=== PATIENT | female | born 1970 | race Caucasian/White ===

== ENCOUNTER 2019-03-04 08:04 | Outpatient (CLI) | payer OTHER ==
--- NOTE | 2019-03-04 09:01 | ULT ---
THYROID ULTRASOUND INDICATION: Left-sided thyroid nodules TECHNIQUE: Grayscale and color Doppler images were obtained of the thyroid gland. COMPARISON: None FINDINGS: Right thyroid lobe: The right thyroid lobe measures 1.4 x 4.0 x 1.2 cm. No focal nodule is seen withi n the right thyroid gland. Thyroid isthmus: The thyroid isthmus measures 0.35 cm. No nodules demonstrated. Left thyroid lobe: The left thyroid lobe measures 2.1 x 5.2 x 2.4 cm. There is a 3.2 x 2.0 x 2.2 cm m ixed cystic and solid, hyperechoic, well-circumscribed, wider than tall nodule within the mid to superior pole of the left thyroid gland. Similar morphologically appearing nodule seen within the inf erior pole left thyroid gland measuring 2.7 x 2.2 x 2.0 cm IMPRESSION: 1. 2 separate TIRADS 2 lesions involving the left thyroid gland. No sonographic follow up recommended . 2. No focal thyroid lesion seen in the right thyroid lobe or thyroid isthmus.
== END 2019-03-04 08:05 | disposition home or self-care (01) ==
LOC: SCSULT 08:04
PROVIDERS: ATTEND Otolaryngology Plastic Surgery within the Head & Neck
DX: D49.7 Neoplasm of unspecified behavior of endocrine glands and other parts of nervous system (principal); E07.89 Other specified disorders of thyroid
CPT/HCPCS: 76536

== ENCOUNTER 2020-05-20 10:56 | Outpatient (CLI) | payer OTHER ==
--- NOTE | 2020-05-20 12:10 | ULT ---
BILATERAL RENAL ULTRASOUND: Date: 05/20/2020 HISTORY: Hematuria. UTI. FINDINGS: The right kidney measures 10.5 cm in length and the left kidney measures 10.8 cm in length. No focal mass or hydronephrosis seen. Cortical echogenicity and thickness normal. No shadowing calculi noted. The pre-void urinary bladder volume measures 112 mL with a post-void residual of 11 mL. Urinary bladd er is grossly unremarkable. Bilateral ureteral jets are present. IMPRESSION: Normal exam. POS: [facility]
== END 2020-05-20 10:57 | disposition home or self-care (01) ==
LOC: SCSULT 10:56
PROVIDERS: ATTEND Family Medicine
DX: R31.9 Hematuria, unspecified (principal)
CPT/HCPCS: 76770